=== PATIENT | male | born 1970 | race Caucasian/White ===

== ENCOUNTER 2025-07-16 06:12 | Observation (INO) | payer BC ==
[~2025-07-16] VITALS: Ht 180.3 cm; Wt 132.7 kg
[~2025-07-16 06:12] MED LIST: CELE0.09 PO; GLIP10TA PO; LISI10TA22 PO; SUZE50TA PO
[2025-07-16] MEDS ORDERED: ROCURONIUM BROMIDE 50MG/5ML VIAL As Ordered ONE (06:51)
[2025-07-16] MEDS ORDERED: dexAMETHasone 4 MG/ML 1 ML VIAL As Ordered ONE (06:52)
[2025-07-16] MEDS ORDERED: LIDOCAINE 2% 100 MG/5 ML SDV (FOR ANES.) As Ordered ONE (06:52)
[2025-07-16] MEDS ORDERED: MIDAZOLAM INJ 2 MG/2 ML VIAL As Ordered ONE (06:53)
[2025-07-16] MEDS: LR 1,000 ML IV SCH ×2 (07:40→13:01)
[2025-07-16] MEDS: ceFAZolin SOD 3 GM in DEXTROSE 5% (D5W) MINI-BAG PLU 1... IV ONE (07:49)
[2025-07-16] MEDS: TRANEXAMIC ACID 100 MG/ML 10ML VIAL As Ordered ONE (08:01)
[2025-07-16] MEDS: VANCOMYCIN 1000MG/20ML VIAL As Ordered ONE (09:22)
[2025-07-16] MEDS ORDERED: PHENYLephrine 500MCG 5ML (100MCG/ML) SYRINGE As Ordered ONE (09:35)
[2025-07-16] MEDS ORDERED: SUGAMMADEX SODIUM 500 MG/5 ML VIAL As Ordered ONE (09:56)
[2025-07-16] MEDS ORDERED: ONDANSETRON 4MG/2ML VIAL As Ordered ONE (09:57)
[2025-07-16] MEDS: KETOROLAC 30 MG/ML 1 ML VIAL As Ordered ONE (11:01)
[2025-07-16] MEDS ORDERED: MORPHINE 4 MG/ML 1 ML VIAL IV PRN (11:15)
[2025-07-16] MEDS ORDERED: GLUCOSE 4 GM CHEW PO PRN (11:40)
[2025-07-16] MEDS ORDERED: DEXTROSE 50% 50 ML SYRINGE IV PRN (11:40)
[2025-07-16] MEDS ORDERED: ONDANSETRON 4MG/2ML VIAL IV PRN (11:40)
[2025-07-16] MEDS ORDERED: HYDROmorphone 2 MG TAB PO PRN ×2 (11:40)
[2025-07-16] MEDS ORDERED: GLUCAGON INJ 1 MG VIAL SC PRN (11:40)
[2025-07-16] MEDS: HYDROMORPHONE HCL 0.5 MG/0.5 ML SYRINGE IV PRN (11:42)
[2025-07-16] MEDS: INSULIN LISPRO (NovoLOG) PER UNIT SC PRN (11:50)
[2025-07-16] MEDS ORDERED: HYDR2TAB2 PO (12:10)
[2025-07-16 12:31] VITALS: BP 135/74; TEMP 97.8
[2025-07-16 13:00] VITALS: BP 131/76; TEMP 98.4; O2SAT 96
[2025-07-16] MEDS: ACETAMINOPHEN *IV* 1,000 MG in IV 1 EA IV SCH (13:01)
[2025-07-16 13:30] VITALS: BP 141/87; TEMP 97.9; O2SAT 99
[2025-07-16 14:30] VITALS: BP 111/75; TEMP 97; O2SAT 95
[2025-07-16] MEDS ORDERED: ASCO50TA PO (15:30)
[2025-07-16] MEDS ORDERED: FERR1TAB8 PO (15:30)
[2025-07-16] MEDS ORDERED: SENN18TA PO (15:30)
[2025-07-16] MEDS ORDERED: ceFAZolin SODIUM 2 GM in DEXTROSE 5% (D5W) ADV/MINI-BAG 50 ML IV SCH (16:00)
[2025-07-16] MEDS ORDERED: KETOROLAC 30 MG/ML 1 ML VIAL IV SCH (19:00)
[2025-07-17] MEDS ORDERED: SENNA 8.6 MG TAB PO SCH (09:00)
[2025-07-17] MEDS ORDERED: ASCORBIC ACID 500 MG TAB PO SCH (09:00)
[2025-07-17] MEDS ORDERED: FERROUS SULFATE 325 MG TAB PO SCH (09:00)
== END 2025-07-16 16:00 | disposition home or self-care (01) ==
LOC: M SDC 06:12 → M ED INP 06:13 → M MS5PR 12:30
PROVIDERS: ADMIT Neuromusculoskeletal Medicine, Sports Medicine; ATTEND Neuromusculoskeletal Medicine, Sports Medicine
DX: M16.11 Unilateral primary osteoarthritis, right hip (principal); E11.9 Type 2 diabetes mellitus without complications; Z88.0 Allergy status to penicillin; Z79.84 Long term (current) use of oral hypoglycemic drugs; Z79.899 Other long term (current) drug therapy
CPT/HCPCS: 27130; 72170; 87641; 88300; 93005; 96374; 97116; 97161; 97530; C1713; C1776; J0131; J0665; J0666; J0688; J1100; J1171; J1815; J1885; J2250; J2371; J2405; J3010; J3373; S2900

== ENCOUNTER → 2025-08-01 | Outpatient (CLI) | payer BC ==
[~2025-08-01] MED LIST changes: +ASCO50TA PO; +FERR1TAB8 PO; +HYDR2TAB2 PO; +SENN18TA PO
== END ==
LOC: M SOG 07:20
PROVIDERS: ATTEND Neuromusculoskeletal Medicine, Sports Medicine
DX: Z96.641 Presence of right artificial hip joint (principal)

== ENCOUNTER → 2025-09-16 | Outpatient (CLI) | payer BC | LOC: M SOG 09:37 | PROVIDERS: ATTEND Neuromusculoskeletal Medicine, Sports Medicine | DX: Z96.641 Presence of right artificial hip joint (principal) ==